=== PATIENT | female | born 1980 ===

== ENCOUNTER 2019-08-23 10:05 | Inpatient (IN) | payer BC ==
[2019-08-23] MEDS ORDERED: Ibuprofen 800 MG TAB PO PRN (10:24)
[2019-08-23] MEDS ORDERED: Diphenoxylate HCl/Atropine Tablet PO PRN ×2 (10:24)
[2019-08-23] MEDS ORDERED: Docusate 100 MG CAP PO PRN (10:24)
[2019-08-23] MEDS ORDERED: Misoprostol 200 MCG TAB PR PRN (10:24)
[2019-08-23] MEDS ORDERED: Butorphanol Tartrate 1 MG/ML VIAL SLOW IVP PRN (10:24)
[2019-08-23] MEDS ORDERED: Acetaminophen 500 MG TAB PO PRN (10:24)
[2019-08-23] MEDS ORDERED: Promethazine HCl 25 MG/ML VIAL IM PRN ×4 (10:24→19:56)
[2019-08-23] MEDS ORDERED: hydrALAZINE 20 MG/ML VIAL SLOW IVP PRN ×2 (10:24→18:30)
[2019-08-23] MEDS ORDERED: HYDROcodone/Acetaminophen 5/325 mg Tablet PO PRN ×3 (10:24→18:30)
[2019-08-23] MEDS ORDERED: NS w/ Oxytocin 10 units 500 ML IV SCH ×2 (10:24)
[2019-08-23] MEDS ORDERED: Penicillin G Potassium 5 MILL.UNITS in Sodium Chloride 0.9% 100 ML IVPB SCH (10:24)
[2019-08-23] MEDS ORDERED: NS / Oxytocin 40 units/1000ml 1,000 ML IV PRN (10:24)
[2019-08-23] MEDS ORDERED: Lidocaine 1% (PF) 30 ML VIAL SC PRN (10:24)
[2019-08-23] MEDS ORDERED: Ondansetron PF 4 MG/2 ML Vial IVP PRN ×4 (10:24→19:56)
[2019-08-23] MEDS: Lactated Ringer's 1,000 ML IV SCH ×4 (10:40→20:41)
[2019-08-23 11:06] LABS: Hemoglobin 11.7 g/dL (12.0-16.0); Mean Corpuscular HGB CONC 35.4 g/dL (32.0-36.0); Mean Corpuscular Hemoglobin 31.8 pg (27.0-31.0); Mean Corpuscular Volume 89.9 fL (78.0-98.0); Mean Platelet Volume 7.6 fL (7.4-10.4); Platelet Count 233 thou/uL (130-400); RBC Distribution Width 12.4 % (11.5-14.5); Red Blood Cell (RBC) Count 3.67 mill/uL (4.20-5.40)
[2019-08-23] MEDS ORDERED: Fentanyl 4 mcg/Bup 0.1% Cadd 100 ML ONE (11:16)
[2019-08-23 11:19] VITALS: BMI 40.7
[2019-08-23 11:54] LABS: Hep B Surf Ag Non-Reactive S/CO (NonReactive)
[2019-08-23 12:12] LABS: Syphilis Antibody Nonreactive (Nonreactive); Syphilis Antibody Index 0.56 S/CO (<1.00 Non-Reactive)
[2019-08-23] MEDS ORDERED: diphenhydrAMINE 50 MG/ML VIAL IVP PRN ×2 (12:20→19:56)
[2019-08-23] MEDS ORDERED: Lactated Ringer's 500 ML IV PRN (12:20)
[2019-08-23] MEDS ORDERED: Naloxone HCl 0.4 mg/ml Vial IVP PRN ×2 (12:20)
[2019-08-23] MEDS ORDERED: ePHEDrine/0.9% NaCl/PF SYRINGE 50 mg/10 ml SLOW IVP PRN (12:20)
[2019-08-23] MEDS ORDERED: Acetaminophen 325 MG TAB PO PRN ×2 (12:20→18:30)
[2019-08-23] MEDS ORDERED: Communication Order-Pharmacy FS SCH ×2 (12:30→20:00)
[2019-08-23] MEDS ORDERED: Fentanyl 4 mcg/Bupivacaine 0.1% Cassette 100 ML EPIDURAL SCH (12:30)
[2019-08-23] MEDS ORDERED: PROPOFOL 200 MG/20 ML VIAL ONE (12:31)
[2019-08-23] MEDS ORDERED: Succinylcholine Chloride 20 MG/ML 10 ml SYRINGE FS ONE ×2 (12:31→16:07)
[2019-08-23] MEDS ORDERED: ePHEDrine/0.9% NaCl/PF SYRINGE 50 mg/10 ml ONE ×2 (12:31→16:08)
[2019-08-23] MEDS ORDERED: Lidocaine 1% (PF) 30 ML VIAL ONE (13:48)
[2019-08-23] MEDS ORDERED: NS / Oxytocin 40 units/1000ml 1,000 ML ONE (13:48)
[2019-08-23] MEDS ORDERED: Bicitra 30 ML UDCUP ONE (15:50)
[2019-08-23] MEDS ORDERED: Lidocaine 2% 10 ML INJ ONE (16:07)
[2019-08-23] MEDS ORDERED: PROPOFOL 20 ML ONE (16:07)
[2019-08-23] MEDS ORDERED: Oxytocin 10 UNITS/ML VIAL ONE (16:08)
[2019-08-23] MEDS ORDERED: Ondansetron PF 4 MG/2 ML Vial ONE (16:08)
[2019-08-23] MEDS ORDERED: PHENYLEPHRINE-NS 100 MCG/ML 10 ML SYRINGE ONE (16:08)
[2019-08-23] MEDS ORDERED: Bupivacaine PF 0.5% 30 ML VIAL ONE (16:29)
[2019-08-23] MEDS ORDERED: Fentanyl 100 MCG/2 ML VIAL ONE ×3 (16:46→17:31)
[2019-08-23] MEDS ORDERED: Azithromycin 500 MG VIAL ONE (16:58)
[2019-08-23] MEDS: Penicillin G 2.5 MILL.units 2.5 MILL.UNITS in Premix Bag 1 BAG IVPB SCH ×2 (18:14→20:41)
[2019-08-23] MEDS ORDERED: Lanolin Ointment 7 GM TUBE TOP PRN (18:30)
[2019-08-23] MEDS ORDERED: NS / Oxytocin 40 units/1000ml 1,000 ML IV SCH (18:30)
[2019-08-23] MEDS ORDERED: diphenhydrAMINE 25 MG CAP PO PRN ×2 (18:30→19:56)
[2019-08-23] MEDS ORDERED: Bisacodyl 10 MG SUPP PR PRN (18:30)
[2019-08-23] MEDS ORDERED: Zolpidem Tartrate 5 MG TAB PO PRN ×2 (18:30→19:56)
[2019-08-23] MEDS ORDERED: Meperidine HCl/PF 25 MG/ML VIAL SLOW IVP PRN (18:55)
[2019-08-23] MEDS ORDERED: L&D-Morphine 4 MG/ML VIAL SLOW IVP PRN (18:55)
[2019-08-23] MEDS ORDERED: HYDROmorphone 2 MG/ML VIAL SLOW IVP PRN ×2 (18:55)
[2019-08-23] MEDS ORDERED: Ondansetron HCl/PF 4 MG/2 ML Vial IVP PRN ×2 (18:55)
[2019-08-23] MEDS ORDERED: Promethazine HCl 25 MG/ML VIAL SLOW IVP PRN (18:55)
[2019-08-23] MEDS ORDERED: Ketorolac Tromethamine 30 MG/ML VIAL ONE (18:57)
[2019-08-23] MEDS ORDERED: Ketorolac Tromethamine 30 MG/ML VIAL IVP SCH (19:00)
[2019-08-23] MEDS: HYDROmorphone 2 MG/ML VIAL SLOW IVP PRN ×4 (19:21→20:15)
[2019-08-23] MEDS ORDERED: diphenhydrAMINE 50 MG/ML VIAL IM PRN (19:56)
[2019-08-23] MEDS ORDERED: Naloxone HCl 0.4 mg/ml Vial IV PRN (19:56)
[2019-08-23] MEDS ORDERED: fentaNYL Citrate/PF 2,000 MCG in Sodium Chloride 0.9% 60 ML IV PRN (19:56)
[2019-08-23] MEDS: Enoxaparin Sodium 40 MG/0.4 ML SYRINGE SC SCH (21:09)
[2019-08-24] MEDS: Ibuprofen 800 MG TAB PO SCH ×4 (00:27→18:45)
[2019-08-24] MEDS: Lactated Ringer's 1,000 ML IV SCH ×3 (00:27→19:53)
[2019-08-24] MEDS: Docusate Calcium (SURFAK) 240 MG CAP PO SCH ×3 (00:28→21:25)
[2019-08-24 05:32] LABS: Hemoglobin 7.8 g/dL (12.0-16.0); Mean Corpuscular HGB CONC 35.3 g/dL (32.0-36.0); Mean Corpuscular Hemoglobin 32.4 pg (27.0-31.0); Mean Corpuscular Volume 91.6 fL (78.0-98.0); Mean Platelet Volume 7.6 fL (7.4-10.4); Platelet Count 207 thou/uL (130-400); RBC Distribution Width 12.5 % (11.5-14.5); Red Blood Cell (RBC) Count 2.42 mill/uL (4.20-5.40); White Blood Cell (WBC) Count 11.5 thou/uL (4.8-10.8)
[2019-08-24] MEDS: Ferrous Sulfate 325 MG TAB PO SCH ×2 (07:24→18:45)
[2019-08-24] MEDS ORDERED: Adacel (T-DAP) 0.5 ML SYRINGE IM ONE (09:00)
[2019-08-24] MEDS: Prenatal Vitamin 1 TAB PO SCH (09:39)
[2019-08-24] MEDS: Simethicone Chewable 80 MG TAB PO PRN ×2 (09:39→19:56)
[2019-08-24] MEDS ORDERED: FLU VACC QS2019-20(6MOS UP)/PF 60 MCG/0.5 ML SYRINGE IM ONE ×2 (09:45→12:15)
[2019-08-24] MEDS: HYDROcodone/Acetaminophen 5/325 mg Tablet PO PRN ×2 (10:38→21:25)
[2019-08-24] MEDS: Meperidine HCl/PF 25 MG/ML VIAL IM PRN ×2 (14:39→18:41)
[2019-08-24] MEDS: Lorazepam 0.5 MG TAB PO PRN (15:58)
[2019-08-24] MEDS: Calcium Carbonate 500 MG ChewTAB PO PRN (19:56)
[2019-08-24] MEDS: Enoxaparin Sodium 40 MG/0.4 ML SYRINGE SC SCH (21:27)
[2019-08-25] MEDS: Lorazepam 0.5 MG TAB PO PRN ×2 (00:38→10:27)
[2019-08-25] MEDS: Simethicone Chewable 80 MG TAB PO PRN ×3 (01:34→14:04)
[2019-08-25] MEDS: Ibuprofen 800 MG TAB PO SCH ×3 (01:34→16:29)
[2019-08-25] MEDS: HYDROcodone/Acetaminophen 5/325 mg Tablet PO PRN ×5 (01:34→22:17)
[2019-08-25] MEDS: Lactated Ringer's 1,000 ML IV SCH ×3 (04:52→18:20)
[2019-08-25] MEDS: Ferrous Sulfate 325 MG TAB PO SCH ×2 (08:42→18:19)
[2019-08-25] MEDS: Prenatal Vitamin 1 TAB PO SCH (08:42)
[2019-08-25] MEDS: Docusate Calcium (SURFAK) 240 MG CAP PO SCH ×2 (08:42→21:38)
[2019-08-25] MEDS: Calcium Carbonate 500 MG ChewTAB PO PRN (11:46)
[2019-08-25] MEDS: Enoxaparin Sodium 40 MG/0.4 ML SYRINGE SC SCH (21:38)
[2019-08-26] MEDS: Ibuprofen 800 MG TAB PO SCH ×3 (00:12→16:03)
[2019-08-26] MEDS: HYDROcodone/Acetaminophen 5/325 mg Tablet PO PRN ×5 (02:11→20:15)
[2019-08-26] MEDS: Lactated Ringer's 1,000 ML IV SCH ×3 (03:06→17:09)
[2019-08-26] MEDS: Prenatal Vitamin 1 TAB PO SCH (08:24)
[2019-08-26] MEDS: Docusate Calcium (SURFAK) 240 MG CAP PO SCH (08:24)
[2019-08-26] MEDS: Ferrous Sulfate 325 MG TAB PO SCH ×2 (08:25→17:27)
[2019-08-26] MEDS: Lorazepam 0.5 MG TAB PO PRN (08:31)
[2019-08-26] MEDS: Simethicone Chewable 80 MG TAB PO PRN (11:08)
[2019-08-26 20:44] VITALS: BP 105/71; TEMP 98.2
--- NOTE | 2019-08-29 13:30 | OP ---
DATE OF PROCEDURE: 08/23/2019 RESIDENT SURGEON: Susan Aguilar DO PREOPERATIVE DIAGNOSES: 1. Compound presentation. 2. Back down transverse lie. 3. Active labor. 4. Non-reassuring heart rate tracing. POSTOPERATIVE DIAGNOSES: 1. Compound presentation. 2. Back down transverse lie. 3. Active labor. 4. Non-reassuring heart rate tracing. PROCEDURE PERFORMED: Primary low-transverse section. ANESTHESIA: 1. Epidural catheterization. 2. General endotracheal (GETA). FINDINGS: 1. The patient in active labor with compound presentation. 2. Back down transverse lie. 3. Viable male , 7 pounds 1 ounce. 7 and 9. 4. Normal uterus, tubes, and ovaries. COMPLICATIONS: None. SPECIMENS REMOVED: Cord blood. ESTIMATED BLOOD LOSS: Approximately 800 mL. HISTORY AND INDICATIONS: Mrs. Vilma Blank is a very pleasant 39-year-old white female followed in my clinic for obstetric care. Mrs. Blank has a complex medical history with a thrombophilia and history of DVT. She had declined Lovenox for cost issues. She was followed very closely for labor and been placed at bed rest the week prior to her delivery. She presented to the office complaining of contractions and was noted to be 6 cm. In addition, the patient had previously been in breech presentation and spontaneously converted to vertex. On examination, the back of the baby's head was easily palpated and confirmed on ultrasound. The patient was sent to Labor and Delivery and active labor. Subsequently, the patient progressed to a compound presentation with what was felt to be back down transverse lie. The nuchal fold of the baby's neck was easily palpated, but it was clear that the patient was not proceeding in a normal labor pattern with a compound presentation. Ultrasound in Labor and Delivery confirmed a compound presentation. In addition, the patient began to experience a category II non-reassuring heart rate tracing with deep variables and intermittent bradycardia. Decision was made to proceed with primary after it was clear that the baby was not going to proceed in vertex presentation. The patient was thoroughly counseled and consented. Surgical disclosures were signed and placed in the chart. DESCRIPTION OF PROCEDURE: After consent and counseling, Mrs. Blank was sent to the operating room and adequate level of anesthesia was attempted with the existing epidural, but the patient was extremely uncomfortable during test procedure. For this reason, a general endotracheal anesthesia was utilized. Prior to induction of anesthesia, the patient was prepped and draped in usual sterile fashion for abdominal surgery. A Pryor was previously placed in the bladder, which was noted to be draining clear urine. Team time-out was performed. Anesthesia was then obtained using GETA. A Pfannenstiel incision was made and carried sharply to the fascia, which was also sharply incised. The midline was identified and the rectus muscles were retracted laterally. The abdominal peritoneal cavity was entered with usual safeguards carried out. A retractor was placed and a bladder flap was created on the vesicouterine peritoneum. A bladder blade was then placed. A low-transverse incision was made on the well-developed lower uterine segment. Upon entering the amniotic sac, copious amount of clear amniotic fluid was visualized. As noted, the was noted to be back down transverse lie with the neck and shoulders at the level of the low-transverse incision. Internal version was performed to a vertex presentation in the occiput anterior position. Initially, the arm tried to deliver, which was flexed and returned to its position, which was flexed and returned to its normal position. Head was delivered and baby was bulb suctioned on the abdomen. Shoulders and body were then delivered in an atraumatic fashion. Nuchal cord x1 was reduced. The patient was also noted to have a cord around the right shoulder and the body. Shoulders and body were then delivered in an atraumatic fashion. The cord was doubly clamped and cut. The infant was handed to the pediatric team in attendance for the delivery. The infant was a viable male weighing 7 pounds 1 ounce with Apgars of 7 and 9 obtained at one and five minutes respectively. Cord blood was obtained. The placenta was manually removed from the uterus. The uterus was exteriorized and good tone was noted. The uterine cavity was cleared of any remaining clot and fluid. The low-transverse incision was closed in a running locking ligature of #1 chromic. A second imbricating layer was placed to facilitate strength hemostasis. The vesicouterine peritoneum was then closed with a running ligature of 3-0 Monocryl. Good hemostasis was noted. The posterior cul-de-sac and gutters were cleared of clot and fluid. The uterus was returned to the abdomen and the incision was again inspected and noted to be normal. Uterus, fallopian tubes, and ovaries were all normal. No pathology was identified. Lap, sponge, and needle counts were correct. The peritoneum was closed in a running ligature of 2-0 Vicryl. The rectus muscles were reapproximated in the midline with interrupted ligatures of both 2-0 Vicryl and #1 chromic sutures. The fascia was then closed with 2 ligatures of 0 Vicryl sutures, which were tied in the midline. Good fascial integrity was appreciated. The incision was irrigated with copious amount of warm normal saline. The subcutaneous tissue was then closed with interrupted ligatures of 2-0 plain suture. The skin was then closed with subcuticular stitch of 4-0 Monocryl and dressed with Dermabond. Lap, sponge, and needle counts were correct x3. Estimated blood loss during the surgical procedure was approximately 800 mL. A pressure dressing and ice packs were subsequently placed. The patient was taken to the recovery room in good condition. The baby was returned to the mother for ybsu-de-ptaf and breast feeding shortly after surgery. Immediately following surgery, the patient and family were made aware of the surgical procedure and operative findings. Questions were answered to their satisfaction. Job ID: [id number]
== END 2019-08-26 20:45 | disposition home or self-care (01) | DRG 788 ==
LOC: L&D-LIB 10:05 → 3SW 08-24 00:21
PROVIDERS: ADMIT Obstetrics & Gynecology; ATTEND Obstetrics & Gynecology
PROC: 10D00Z1 Extraction of Products of Conception, Low, Open Approach (ICD-10-PCS; principal; 2019-08-23)
DX: O32.2XX0 Maternal care for transverse and oblique lie, not applicable or unspecified (principal); O99.344 Other mental disorders complicating childbirth; O99.62 Diseases of the digestive system complicating childbirth; F41.9 Anxiety disorder, unspecified; Z37.0 Single live birth; G43.909 Migraine, unspecified, not intractable, without status migrainosus; Z3A.37 37 weeks gestation of pregnancy; O75.89 Other specified complications of labor and delivery; K21.9 Gastro-esophageal reflux disease without esophagitis; O76 Abnormality in fetal heart rate and rhythm complicating labor and delivery
CPT/HCPCS: 36415; 36416; 51702; 85027; 86780; 86850; 86900; 86901; 87340; J0456; J0690; J1170; J1650; J1885; J2001; J2175; J2405; J2550; J2590; J2704; J3010; J3490; S0020